=== PATIENT | female | born 1965 | race Caucasian/White ===

== ENCOUNTER 2020-04-08 21:28 | Emergency (ER) | payer OTHER ==
[~2020-04-08] VITALS: Ht 154.9 cm; Wt 60.8 kg
[2020-04-08 21:33] VITALS: BP 113/68
[2020-04-08] MEDS ORDERED: ALBUTEROL SULFATE/IPRATROPIU 3 ML SOL IH ONE (21:55)
[2020-04-08 22:34] VITALS: BP 113/68
== END 2020-04-08 22:34 | disposition home or self-care (01) ==
LOC: MED 21:28
DX: J70.5 Respiratory conditions due to smoke inhalation (principal); Z98.890 Other specified postprocedural states
CPT/HCPCS: 94640; 99283; 99284